=== PATIENT | male | born 1980 | race American Indian/Alaskan Native ===

== ENCOUNTER 2017-10-08 03:20 | Inpatient (IN) | payer SELFPAY ==
[2017-10-08] MEDS ORDERED: HALDOL IM ONE (03:40)
--- NOTE | 2017-10-08 03:45 | Emergency Department Report ---
<MARIS OLEA P - Last Filed: 10/08/17 06:50> ED Psych HPI - General Stated Complaint: 1013 Time Seen by Provider: 10/08/17 03:38 Source: patient, police Limitations: Altered Mental Status - History of Present Illness Initial Comments: Patient found throwing things from the [place]pass onto the highway by police. Reports patient also was walking onto the highway at one point. Patient altered not responding appropriately MD Complaint: altered mental status Associated Psychiatric Symptoms: other (psychosis) History of same: Yes Quality: getting worse Improves With: none Worsens With: none Context: not taking psychiatric (reports not taking haldol and wellbutrin) Associated Symptoms: denies other symptoms Treatments Prior to Arrival: placed on mental he - Related Data Allergies Allergy/AdvReac Type Severity Reaction Status Date / Time Unable to Assess Allergy Unverified 10/08/17 03:38 ED Review of Systems ROS: Stated complaint: 1013 Other details as noted in HPI Other: GENERAL: No weight change, fatigue, weakness, fever, chills, or night sweats SKIN: No changes in skin or hair, no itching, no rashes, no jaundice HEAD: No trauma, headache, or visual changes EYES: No blurriness, tearing, itching, acute visual loss, conjunctival discoloration, or scleral icterus EARS: No hearing loss, tinnitus, vertigo, or earache NOSE: No rhinorrhea, stuffiness, sneezing, itching, or epistaxis MOUTH: No bleeding gums, hoarseness, sore throat, or swelling CARDIAC: No new murmur, chest pain, palpitations, dyspnea on exertion, orthopnea , PND, or edema RESPIRATORY: No shortness of breath, wheeze, cough, sputum production, hemoptysis, pneumonia, asthma, bronchitis, or emphysema GI: No change in appetite, nausea, vomiting, dysphagia, change in bowel frequency, diarrhea, constipation, bleeding, hematemesis, melena, hematochezia, or abdominal pain URINARY: No frequency, urgency, polyuria, dysuria, hematuria, or incontinence MUSCULOSKELETAL: No muscle weakness, joint stiffness, decrease in range of motion, redness, swelling NEUROLOGIC: No loss of sensation, numbness, tingling, tremors, weakness, paralysis, seizures HEMATOLOGIC: No anemia, easy bruising, bleeding, petechiae, or purpura ENDOCRINE: No hot or cold intolerance, sweating, polyuria, polydipsia or, polyphagia no thyroid problems PSYCHIATRIC: Psychosis ED Physical Exam - Other Other exam information: GENERAL: Patient in no acute distress, patient disheveled HEAD: Normocephalic, atraumatic EYES: PERRLA, EOM intact, no scleral icterus, visual rodriguez and acuity wnl NOSE: No tenderness, discharge, sinus tenderness MOUTH: No erythema, bleeding, exudate HEART: Regular rate and rhythm, no murmur, S1-S2 are auscultated, pulses are symmetric LUNGS: bilateral breath sounds. No wheezing, rales, rhonchi ABDOMEN: Normal bowel sounds, no tenderness, no rebound, no guarding, no masses , no CVA tenderness MUSCULOSKELETAL: Normal joint range of motion, no redness, no swelling, no tenderness NEUROLOGIC: GCS 15, Alert and Oriented x3, Cranial nerves intact, normal sensation, normal strength, normal gait, no cerebellar deficit PSYCHIATRIC: patient with pressured speech, paranoia, aggression SKIN: Skin is warm and dry, no wounds, no rashes ED Course Vital Signs 10/08/17 04:01 Temperature 98.4 F Pulse Rate 102 H Respiratory 18 Rate Blood Pressure 124/86 O2 Sat by Pulse 100 Oximetry ED Medical Decision Making - Lab Data Result diagrams: 10/08/17 04:11 10/08/17 04:11 Laboratory Results - last 24 hr 10/08/17 10/08/17 10/08/17 04:11 04:11 04:11 WBC 16.9 H RBC 4.45 Hgb 14.2 Hct 41.8 MCV 94 MCH 32 MCHC 34 RDW 12.7 L Plt Count 301 Lymph % (Auto) 3.8 L [place] % (Auto) 7.1 Eos % (Auto) 0.1 Baso % (Auto) 0.2 Lymph # 0.6 L [place] # 1.2 H Eos # 0.0 Baso # 0.0 Seg Neutrophils % 88.8 H Seg Neutrophils # 15.0 H Sodium 143 Potassium 4.2 Chloride 101.6 Carbon Dioxide 29 Anion Gap 17 BUN 23 H Creatinine 1.3 Estimated GFR > 60 BUN/Creatinine Ratio 18 Glucose 91 Calcium 10.5 H Total Bilirubin 0.90 AST 34 ALT 24 Alkaline Phosphatase 102 Total Protein 7.7 Albumin 5.2 H Albumin/Globulin Ratio 2.1 Salicylates Acetaminophen < 5.0 L Plasma/Serum Alcohol 10/08/17 10/08/17 04:11 04:11 WBC RBC Hgb Hct MCV MCH MCHC RDW Plt Count Lymph % (Auto) [place] % (Auto) Eos % (Auto) Baso % (Auto) Lymph # [place] # Eos # Baso # Seg Neutrophils % Seg Neutrophils # Sodium Potassium Chloride Carbon Dioxide Anion Gap BUN Creatinine Estimated GFR BUN/Creatinine Ratio Glucose Calcium Total Bilirubin AST ALT Alkaline Phosphatase Total Protein Albumin Albumin/Globulin Ratio Salicylates < 0.3 L Acetaminophen Plasma/Serum Alcohol < 0.01 - Medical Decision Making At 0650 Dr. Sparrow agrees to follow up on CT head. If negative patient medically clear for transfer. Critical care attestation.: If time is entered above; I have spent that time in minutes in the direct care of this critically ill patient, excluding procedure time. ED Disposition Clinical Impression: Marijuana abuse, Amphetamine abuse, Cocaine abuse, Dehydration Psychosis Qualifiers: Psychosis type: unspecified psychosis type Qualified Code(s): F29 - Unspecified psychosis not due to a substance or known physiological condition Rhabdomyolysis Qualifiers: Rhabdomyolysis type: non-traumatic Qualified Code(s): M62.82 - Rhabdomyolysis Disposition: -09 OP ADMIT IP TO THIS HOSP Condition: Stable Referrals: PRIMARY CARE,MD [Primary Care Provider] - 3-5 Days <ALEXY SPARROW - Last Filed: 10/08/17 15:24> ED Course - Reevaluation(s) Reevaluation #1: 10/08/17 15:22 Patient care was discussed with the hospitalist salesperson men's hats Dr Zendejas. He will admit patient for further evaluation and management. ED Medical Decision Making - Lab Data Result diagrams: 10/08/17 14:26 10/08/17 14:26 Critical Care Time: Yes Critical care time in (mins) excluding proc time.: 45 ED Disposition Is pt being admited?: Yes Does the pt Need Aspirin: No Time of Disposition: 15:22
[2017-10-08 04:41] LABS: Basophils % (Auto) 0.2 % (0.0-1.8); Eosinophils % (Auto) 0.1 % (0.0-4.3); Hematocrit 41.8 % (35.5-45.6); Hemoglobin 14.2 gm/dl (11.8-15.2); Lymphocytes # (Auto) 0.6 K/mm3 (1.2-5.4); Lymphocytes % (Auto) 3.8 % (13.4-35.0); Mean Corpuscular HGB Conc 34 % (32-34); Mean Corpuscular Hemoglobin 32 pg (28-32); Mean Corpuscular Volume 94 fl (84-94); Monocytes # (Auto) 1.2 K/mm3 (0.0-0.8); Monocytes % (Auto) 7.1 % (0.0-7.3); Platelet Count 301 K/mm3 (140-440); Red Blood Count 4.45 M/mm3 (3.65-5.03); Red Cell Distribution Width 12.7 % (13.2-15.2)
[2017-10-08 05:08] LABS: Alanine Aminotransferase 24 units/L (7-56); Albumin 5.2 g/dL (3.9-5); BUN/Creatinine Ratio 18; Blood Urea Nitrogen 23 mg/dL (9-20); Calcium 10.5 mg/dL (8.4-10.2); Hemolysis Index 12
[2017-10-08] MEDS ORDERED: NACL 0.9% 1000 ML 1,000 ML IV ONE ×5 (07:57→16:32)
--- NOTE | 2017-10-08 10:19 | Cat Scan Report ---
FINAL REPORT EXAM: CT HEAD/BRAIN WO CON HISTORY: Alterted Mental Status COMPARISON: None. TECHNIQUE: Multiple contiguous axial images were obtained from the skullbase to the vertex without administration of IV contrast. Reformatted sagittal and coronal images were available for review. FINDINGS: There is normal angelo-white differentiation. There is no parenchymal hemorrhage or extra-axial fluid collection. There is no mass or mass effect. There is no acute territorial infarct. There is asymmetry to the lateral ventricles with the right lateral ventricle larger than the left. There is shift of the falx to the left of approximately 6 millimeters. The 3rd and 4th ventricles are normal. The posterior fossa is normal. The subarachnoid spaces and basilar cisterns are clear. There is no skull fracture. The paranasal sinuses and mastoid air cells are clear. The bilateral orbits are intact. IMPRESSION: No acute intracranial abnormality. Asymmetry to the lateral ventricles with the right ventricle larger than the left. Recommend comparison to any previous studies and correlation with clinical history. No obvious mass or obstructing lesion.
[2017-10-08 11:46] LABS: Benzodiazepines Screen,Urine PRESUMPTIVE NEGATIVE; Methadone Screen,Urine PRESUMPTIVE NEGATIVE; Opiate Screen,Urine PRESUMPTIVE NEGATIVE
--- NOTE | 2017-10-08 11:48 | XRay Report ---
FINAL REPORT EXAM: XR CHEST 1V AP HISTORY: Leukocytosis TECHNIQUE: One view examination of the chest PRIORS: None FINDINGS: There is no consolidated pneumonia, pleural effusion, or pneumothorax. Cardiac silhouette size is normal without vascular congestion. The regional skeleton is without acute pathology. Large lung volumes bilaterally suggest hyperinflation which may reflect pulmonary emphysema and/or asthma. IMPRESSION: Large lung volumes may be developmental variation. Differential includes pulmonary emphysema and/or asthma
[2017-10-08 11:53] LABS: Bilirubin,Urine NEG (Negative); Blood,Urine NEG (Negative); Color,Urine Amber (Yellow); Hyaline Casts,Urine 1 /LPF; Mucus,Urine 3+ /HPF
[2017-10-08 12:03] LABS: Amphetamine Screen,Urine PRESUMPTIVE POSITIVE; Cannabinoid Screen,Urine PRESUMPTIVE POSITIVE; Cocaine Screen,Urine PRESUMPTIVE POSITIVE
--- NOTE | 2017-10-08 13:34 | Consultation ---
History of Present Illness - Reason for Consult Consult date: 10/08/17 Reason for consult: Initial Psychiatric Evaluation - Chief Complaint Chief complaint: " I don't remember too much." - History of Present Psychiatric Illness Patient is a 37-year-old -[place] male that was brought to the emergency room for throwing things from the overpass onto the highway by police. Reports patient also was walking onto the highway at one point. Patient has a past psychiatric history of Schizoaffective Disorder and Post traumatic stress disorder. Patient is known to provider. Today patient presents labile and agitated during the assessment. He states, " It is a situation I can't talk about with you." Paranoid and grandiose delusions are evident. Patient denies suicidal/homicidal ideations and auditory/visual hallucinations. Current psychiatric medications: Patient denies. None reported. Past Psychiatric History: schizoaffective disorder (2018), PTSD (2018); approximately 5 previous inpatient psychiatric hospitalizations-patient states I can't remember the dates and they were in different states; no outpatient psychiatrist; no previous suicide attempts. Past Psychiatric Medication Trials: Vistaril, Remeron, BuSpar, Trileptal History of trauma/abuse: Patient denies sexual, physical, and mental abuse. Drugs/alcohol abuse history: Patient denies any history of substance abuse. Social history: High school diploma; homeless; no pending legal issues; 3 children(ages 11, 4, 1); single. gle. Family history: Patient denies family history of psychiatric or substance abuse. Medications and Allergies Allergies Allergy/AdvReac Type Severity Reaction Status Date / Time Unable to Assess Allergy Unverified 10/08/17 03:38 Mental Status Exam - Vital signs Last Vital Signs Temp 98.4 F 10/08/17 04:01 Pulse 102 H 10/08/17 04:01 Resp 18 10/08/17 04:01 BP 124/86 10/08/17 04:01 Pulse Ox 100 10/08/17 04:01 - Exam Narrative exam: Mental Status Exam General Appearance: Causally Dressed-hospital gown Eye Contact: Intermittent Orientation: Alert and oriented x 4 ( person, place, time, and date) Attitude/Behavior: Defensive and somewhat uncooperative. Sensorium: Distracted Psychomotor & Musculoskeletal Activity: Laying in bed Mood: Anxious, labile, irritable Affect: Congruent with mood Speech/Language: Regular rate and tone Thought Processes: Circumstantial, flight of ideas Thought Content: + paranoia, grandiose delusions Perception: Patient denies A/V/T hallucinations. Concentration/Attention: Impaired Suicidal Ideations/Plan: Patient denies. Homicidal Ideations/Plan: Patient denies. Insight: Poor Judgment: Poor Results Result Diagrams: 10/08/17 14:26 10/08/17 14:26 Abnormal lab results 10/08/17 10/08/17 10/08/17 Range/Units 04:11 04:11 04:11 WBC 16.9 H (4.5-11.0) K/mm3 RDW 12.7 L (13.2-15.2) % Lymph % (Auto) 3.8 L (13.4-35.0) % Lymph # 0.6 L (1.2-5.4) K/mm3 [place] # 1.2 H (0.0-0.8) K/mm3 Seg Neutrophils % 88.8 H (40.0-70.0) % Seg Neutrophils # 15.0 H (1.8-7.7) K/mm3 BUN 23 H (9-20) mg/dL Calcium 10.5 H (8.4-10.2) mg/dL Total Creatine Kinase (55-170) units/L Albumin 5.2 H (3.9-5) g/dL Ur Specific [place] (1.003-1.030) Urine WBC (Auto) (0.0-6.0) /HPF Salicylates (2.8-20.0) mg/dL Acetaminophen < 5.0 L (10.0-30.0) ug/mL 10/08/17 10/08/17 10/08/17 Range/Units 04:11 08:21 11:25 WBC (4.5-11.0) K/mm3 RDW (13.2-15.2) % Lymph % (Auto) (13.4-35.0) % Lymph # (1.2-5.4) K/mm3 [place] # (0.0-0.8) K/mm3 Seg Neutrophils % (40.0-70.0) % Seg Neutrophils # (1.8-7.7) K/mm3 BUN (9-20) mg/dL Calcium (8.4-10.2) mg/dL Total Creatine Kinase 1095 H (55-170) units/L Albumin (3.9-5) g/dL Ur Specific [place] 1.034 H (1.003-1.030) Urine WBC (Auto) 9.0 H (0.0-6.0) /HPF Salicylates < 0.3 L (2.8-20.0) mg/dL Acetaminophen (10.0-30.0) ug/mL All other labs normal. Assessment and Plan Assessment and plan: Assessment and plan: Impression: PPHx of Schizaffective Disorder and PTSD. Pyschosis unspecified. Today the patient presents labile and agitated during the assessment. Psychosis is apparent (Paranoid thoughts/grandiose delusions). Patient denies auditory/visual hallucinations and suicidal/homicidal ideations. DDx: r/o Bipolar Disorder with psychotic features Recommendation/Plan: 1. Continue 1013 and reassess in 24 hours. 2. Assist with placement to inpatient psychiatric services. 3. Gain collateral to determine proper disposition. 4. Start Zyprexa 5mg po psychosis/mood. Patient educated on metabolic side effects. Patient verbalizes full understanding. 5. Will monitor mood, psychosis, sleep, appetite, compliance, and side effects.
[2017-10-08 14:52] LABS: Basophils % (Auto) 0.3 % (0.0-1.8); Eosinophils # (Auto) 0.1 K/mm3 (0.0-0.4); Eosinophils % (Auto) 1.1 % (0.0-4.3); Hematocrit 38.9 % (35.5-45.6); Lymphocytes # (Auto) 1.3 K/mm3 (1.2-5.4); Lymphocytes % (Auto) 13.6 % (13.4-35.0); Mean Corpuscular HGB Conc 34 % (32-34); Mean Corpuscular Hemoglobin 32 pg (28-32); Mean Corpuscular Volume 95 fl (84-94); Monocytes % (Auto) 10.9 % (0.0-7.3); Platelet Count 257 K/mm3 (140-440); Red Blood Count 4.11 M/mm3 (3.65-5.03); Red Cell Distribution Width 12.8 % (13.2-15.2)
[2017-10-08 15:00] LABS: Alanine Aminotransferase 24 units/L (7-56); Albumin 3.8 g/dL (3.9-5); BUN/Creatinine Ratio 22; Blood Urea Nitrogen 20 mg/dL (9-20); Calcium 8.3 mg/dL (8.4-10.2); Hemolysis Index 0
--- NOTE | 2017-10-08 18:26 | History and Physical Report ---
History of Present Illness Chief complaint: I dont remember too much. History of present illness: 37 YO Male with PTSD, Schizoaffective Disorder, PTSD, Polysubstance Abuse presents to ED for evaluation. Pt is agitated and unable to provide detailed history. Pt was brought to ED after being found by [employer] after being found throwing objects [place] onto [place] and walking in traffic. Pt seen and evaluated in ED and found to have Rhabdomyolysis. No further history provided or available. Mental health consulted in ED. Pt admitted to medical floor. Past History Past Medical History: other (PTSD, Schizoaffective Disorder, PTSD, Substance Abuse) Past Surgical History: No surgical history Social history: no significant social history Family history: no significant family history Medications and Allergies Allergies Allergy/AdvReac Type Severity Reaction Status Date / Time Unable to Assess Allergy Unverified 10/08/17 03:38 Review of Systems ROS unobtainable: due to mental status Exam - Constitutional Vitals: Temp Pulse Resp BP Pulse Ox 97.7 F 92 H 16 121/73 98 10/08/17 08:05 10/08/17 08:05 10/08/17 08:05 10/08/17 08:05 10/08/17 08:05 General appearance: Present: mild distress - EENT Eyes: Present: PERRL ENT: hearing intact, clear oral mucosa - Neck Neck: Present: supple, normal ROM - Respiratory Respiratory effort: labored Respiratory: bilateral: CTA - Cardiovascular Heart Sounds: Present: S1 & S2. Absent: rub, click - Extremities Extremities: pulses symmetrical, No edema Peripheral Pulses: within normal limits - Abdominal General gastrointestinal: Present: soft, non-tender, non-distended, normal bowel sounds Male genitourinary: Present: normal - Integumentary Integumentary: Present: clear, dry, clammy, decreased turgor - Musculoskeletal Musculoskeletal: generalized weakness - Psychiatric Psychiatric: no intact judgment & insight, no memory intact, agitated - Neurologic Neurologic: focal deficits, no gait normal Results - Labs CBC & Chem 7: 10/08/17 14:26 10/08/17 14:26 Labs: Abnormal lab results 10/08/17 10/08/17 10/08/17 Range/Units 04:11 04:11 04:11 WBC 16.9 H (4.5-11.0) K/mm3 MCV (84-94) fl RDW 12.7 L (13.2-15.2) % Lymph % (Auto) 3.8 L (13.4-35.0) % [place] % (Auto) (0.0-7.3) % Lymph # 0.6 L (1.2-5.4) K/mm3 [place] # 1.2 H (0.0-0.8) K/mm3 Seg Neutrophils % 88.8 H (40.0-70.0) % Seg Neutrophils # 15.0 H (1.8-7.7) K/mm3 BUN 23 H (9-20) mg/dL Glucose (75-100) mg/dL Calcium 10.5 H (8.4-10.2) mg/dL AST (5-40) units/L Total Creatine Kinase (55-170) units/L Total Protein (6.3-8.2) g/dL Albumin 5.2 H (3.9-5) g/dL Ur Specific [place] (1.003-1.030) Urine WBC (Auto) (0.0-6.0) /HPF Salicylates (2.8-20.0) mg/dL Acetaminophen < 5.0 L (10.0-30.0) ug/mL 10/08/17 10/08/17 10/08/17 Range/Units 04:11 08:21 11:25 WBC (4.5-11.0) K/mm3 MCV (84-94) fl RDW (13.2-15.2) % Lymph % (Auto) (13.4-35.0) % [place] % (Auto) (0.0-7.3) % Lymph # (1.2-5.4) K/mm3 [place] # (0.0-0.8) K/mm3 Seg Neutrophils % (40.0-70.0) % Seg Neutrophils # (1.8-7.7) K/mm3 BUN (9-20) mg/dL Glucose (75-100) mg/dL Calcium (8.4-10.2) mg/dL AST (5-40) units/L Total Creatine Kinase 1095 H (55-170) units/L Total Protein (6.3-8.2) g/dL Albumin (3.9-5) g/dL Ur Specific [place] 1.034 H (1.003-1.030) Urine WBC (Auto) 9.0 H (0.0-6.0) /HPF Salicylates < 0.3 L (2.8-20.0) mg/dL Acetaminophen (10.0-30.0) ug/mL 10/08/17 10/08/17 Range/Units 14:26 14:26 WBC (4.5-11.0) K/mm3 MCV 95 H (84-94) fl RDW 12.8 L (13.2-15.2) % Lymph % (Auto) (13.4-35.0) % [place] % (Auto) 10.9 H (0.0-7.3) % Lymph # (1.2-5.4) K/mm3 [place] # 1.0 H (0.0-0.8) K/mm3 Seg Neutrophils % 74.1 H (40.0-70.0) % Seg Neutrophils # (1.8-7.7) K/mm3 BUN (9-20) mg/dL Glucose 113 H (75-100) mg/dL Calcium 8.3 L D (8.4-10.2) mg/dL AST 59 H (5-40) units/L Total Creatine Kinase 2535 H (55-170) units/L Total Protein 6.2 L (6.3-8.2) g/dL Albumin 3.8 L (3.9-5) g/dL Ur Specific [place] (1.003-1.030) Urine WBC (Auto) (0.0-6.0) /HPF Salicylates (2.8-20.0) mg/dL Acetaminophen (10.0-30.0) ug/mL Assessment and Plan - Patient Problems (1) Rhabdomyolysis Current Visit: Yes Status: Acute Qualifiers: Rhabdomyolysis type: non-traumatic Qualified Code(s): M62.82 - Rhabdomyolysis Plan to address problem: IVF resuscitation therapy, IV bicarbonate overnight, repeat CK level, monitor uop q shift, (2) Bipolar 1 disorder Current Visit: Yes Status: Acute Plan to address problem: Mental Health consulted, supportive care. (3) Amphetamine abuse Current Visit: Yes Status: Acute Plan to address problem: supportive care. (4) Cocaine abuse Current Visit: Yes Status: Acute Plan to address problem: supportive care. (5) DVT prophylaxis Current Visit: Yes Status: Acute Plan to address problem: SCD to BLE while in bed
[2017-10-08] MEDS ORDERED: SODIUM CHLORIDE FLUSH SYRINGE 10 ML IV PRN (18:28)
[2017-10-08] MEDS ORDERED: ZOFRAN IV PRN (18:28)
[2017-10-08] MEDS ORDERED: PROVENTIL IH PRN (18:28)
[2017-10-08] MEDS ORDERED: SODIUM BICARBONATE 150 MEQ in D5W 1,000 ML IV ONE (19:00)
[2017-10-08] MEDS ORDERED: NACL 0.45% 1000 ML 1,000 ML IV SCH (19:00)
[2017-10-08] MEDS ORDERED: NACL 0.9% 1000 ML 1,000 ML ONE (22:45)
[2017-10-08] MEDS: SODIUM CHLORIDE FLUSH SYRINGE 10 ML IV SCH (23:01)
[2017-10-09] MEDS: TYLENOL PO PRN ×3 (01:27→22:35)
--- NOTE | 2017-10-09 08:59 | Progress Note ---
Assessment and Plan Assessment and plan: Acute Rehabdomyolysis. Creatine kinase is improving. its 2215 now from 2535 on admission Polysubstance abuse osiel m,ethamphetamine,cocaine Schizoaffective disorder. Psych consulted PTSD Full code status. 1013 status. Psych to see History Interval history: Brought in for altered mental status,alleged to be walking into traffic, throwing things over overpass Hospitalist Physical - Physical exam Narrative exam: Gen:Not in acute distress, lying in bed HEENT:Normocephalic atraumatic Neck: Supple, no JVD Lungs:clear to auscultation bilaterally, no rhonchi, no wheeze Heart:S1 and S2 reg, no murmurs, rubs or gallop Abd: Soft, non tender, non distended, normal bowel sounds Ext: No edema, clubbing or cyanosis Neuro:Awake,alert, moves all ext - Constitutional Vitals: Temp Pulse Resp BP Pulse Ox 98.0 F 62 18 115/74 98 10/09/17 00:56 10/09/17 00:56 10/09/17 02:27 10/09/17 00:56 10/09/17 00:56 Results - Labs CBC & Chem 7: 10/08/17 14:26 10/08/17 14:26 Labs: Laboratory Last Values WBC 9.6 K/mm3 (4.5-11.0) 10/08/17 14:26 RBC 4.11 M/mm3 (3.65-5.03) 10/08/17 14:26 Hgb 13.0 gm/dl (11.8-15.2) 10/08/17 14:26 Hct 38.9 % (35.5-45.6) 10/08/17 14:26 MCV 95 fl (84-94) H 10/08/17 14:26 MCH 32 pg (28-32) 10/08/17 14:26 MCHC 34 % (32-34) 10/08/17 14:26 RDW 12.8 % (13.2-15.2) L 10/08/17 14:26 Plt Count 257 K/mm3 (140-440) 10/08/17 14:26 Lymph % (Auto) 13.6 % (13.4-35.0) 10/08/17 14:26 [place] % (Auto) 10.9 % (0.0-7.3) H 10/08/17 14:26 Eos % (Auto) 1.1 % (0.0-4.3) 10/08/17 14:26 Baso % (Auto) 0.3 % (0.0-1.8) 10/08/17 14:26 Lymph # 1.3 K/mm3 (1.2-5.4) 10/08/17 14:26 [place] # 1.0 K/mm3 (0.0-0.8) H 10/08/17 14:26 Eos # 0.1 K/mm3 (0.0-0.4) 10/08/17 14:26 Baso # 0.0 K/mm3 (0.0-0.1) 10/08/17 14:26 Seg Neutrophils % 74.1 % (40.0-70.0) H 10/08/17 14:26 Seg Neutrophils # 7.1 K/mm3 (1.8-7.7) 10/08/17 14:26 Sodium 142 mmol/L (137-145) 10/08/17 14:26 Potassium 4.0 mmol/L (3.6-5.0) 10/08/17 14:26 Chloride 104.3 mmol/L (98-107) 10/08/17 14:26 Carbon Dioxide 28 mmol/L (22-30) 10/08/17 14:26 Anion Gap 14 mmol/L 10/08/17 14:26 BUN 20 mg/dL (9-20) 10/08/17 14:26 Creatinine 0.9 mg/dL (0.8-1.5) 10/08/17 14:26 Estimated GFR > 60 ml/min 10/08/17 14:26 BUN/Creatinine Ratio 22 % 10/08/17 14:26 Glucose 113 mg/dL (75-100) H 10/08/17 14:26 Calcium 8.3 mg/dL (8.4-10.2) L D 10/08/17 14:26 Total Bilirubin 0.50 mg/dL (0.1-1.2) 10/08/17 14:26 AST 59 units/L (5-40) H 10/08/17 14:26 ALT 24 units/L (7-56) 10/08/17 14:26 Alkaline Phosphatase 83 units/L (35-129) 10/08/17 14:26 Total Creatine Kinase 2215 units/L (55-170) H 10/09/17 07:31 Total Protein 6.2 g/dL (6.3-8.2) L 10/08/17 14:26 Albumin 3.8 g/dL (3.9-5) L 10/08/17 14:26 Albumin/Globulin Ratio 1.6 % 10/08/17 14:26 Urine Color [place] (Yellow) 10/08/17 11:25 Urine Turbidity Clear (Clear) 10/08/17 11:25 Urine pH 5.0 (5.0-7.0) 10/08/17 11:25 Ur Specific [place] 1.034 (1.003-1.030) H 10/08/17 11:25 Urine Protein 100 mg/dl mg/dL (Negative) 10/08/17 11:25 Urine Glucose (UA) Neg mg/dL (Negative) 10/08/17 11:25 Urine Ketones 20 mg/dL (Negative) 10/08/17 11:25 Urine Blood Neg (Negative) 10/08/17 11:25 Urine Nitrite Neg (Negative) 10/08/17 11:25 Urine Bilirubin Neg (Negative) 10/08/17 11:25 Urine Urobilinogen 4.0 mg/dL (<2.0) 10/08/17 11:25 Ur Leukocyte Esterase Neg (Negative) 10/08/17 11:25 Urine WBC (Auto) 9.0 /HPF (0.0-6.0) H 10/08/17 11:25 Urine RBC (Auto) 4.0 /HPF (0.0-6.0) 10/08/17 11:25 U Epithel Cells (Auto) < 1.0 /HPF (0-13.0) 10/08/17 11:25 Hyaline Casts 1 /LPF 10/08/17 11:25 Urine Mucus 3+ /HPF 10/08/17 11:25 Salicylates < 0.3 mg/dL (2.8-20.0) L 10/08/17 04:11 Urine Opiates Screen Presumptive negative 10/08/17 11:25 Urine Methadone Screen Presumptive negative 10/08/17 11:25 Acetaminophen < 5.0 ug/mL (10.0-30.0) L 10/08/17 04:11 Ur Barbiturates Screen Presumptive negative 10/08/17 11:25 Ur Phencyclidine Scrn Presumptive negative 10/08/17 11:25 Ur Amphetamines Screen Presumptive positive 10/08/17 11:25 U Benzodiazepines Scrn Presumptive negative 10/08/17 11:25 Urine Cocaine Screen Presumptive positive 10/08/17 11:25 U Marijuana (THC) Screen Presumptive positive 10/08/17 11:25 Drugs of Abuse Note Disclamer 10/08/17 11:25 Plasma/Serum Alcohol < 0.01 % (0-0.07) 10/08/17 04:11
[2017-10-09] MEDS: D5/0.45NS 1,000 ML IV SCH (09:28)
[2017-10-09] MEDS ORDERED: VASELINE LIP THERAPY TP PRN (12:50)
[2017-10-09] MEDS: SODIUM CHLORIDE FLUSH SYRINGE 10 ML IV SCH ×2 (14:30→22:25)
[2017-10-10] MEDS: D5/0.45NS 1,000 ML IV SCH ×3 (02:06→19:39)
[2017-10-10 07:05] LABS: BUN/Creatinine Ratio 9; Blood Urea Nitrogen 6 mg/dL (9-20); Calcium 7.8 mg/dL (8.4-10.2); Hemolysis Index 1
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
[2017-10-10] MEDS: LEVAQUIN 500MG/100ML 500 MG/100 ML BAG IV SCH (09:59)
[2017-10-10] MEDS ORDERED: MOTRIN PO PRN (09:59)
[2017-10-10] MEDS: SODIUM CHLORIDE FLUSH SYRINGE 10 ML IV SCH ×2 (09:59→22:12)
--- NOTE | 2017-10-10 14:11 | XRay Report ---
BILATERAL RIBS: History: Pain. Routine views of the rib cage demonstrate normal mineralization with no significant contour abnormalities, fractures or destructive lesions. PA view of the chest demonstrates no underlying cardiopulmonary abnormalities, fluid or pneumothorax. IMPRESSION: Normal bilateral ribs.
[2017-10-10] MEDS ORDERED: K-DUR PO ONE (20:00)
[2017-10-11] MEDS: D5/0.45NS 1,000 ML IV SCH ×4 (03:34→23:14)
[2017-10-11 06:40] LABS: BUN/Creatinine Ratio 7; Blood Urea Nitrogen 5 mg/dL (9-20); Calcium 8.1 mg/dL (8.4-10.2); Hemolysis Index 2
[2017-10-11] MEDS: SODIUM CHLORIDE FLUSH SYRINGE 10 ML IV SCH ×2 (09:54→22:03)
[2017-10-11] MEDS: LEVAQUIN 500MG/100ML 500 MG/100 ML BAG IV SCH (09:54)
--- NOTE | 2017-10-11 12:14 | Progress Note ---
Assessment and Plan Assessment and plan: --Acute Rehabdomyolysis: Probably secondary to polysubstance abuse Mainly cocaine, CK trending down today 685, continue IV fluids Preserved renal function, input output monitoring --Polysubstance abuse with methamphetamine,cocaine,marijuana Counseling done, patient needs drug rehabilitation --Schizoaffective disorder: Psych following Recommend inpatient psych transfer once medically stable Patient is medically stable for discharge --History of PTSD; management per psych --Pain both low rib cages.; Rib series is negative for fractures --1013 status, Psych following Patient medically stable for discharge Disposition per psych Plan of care reviewed with the patient his nurse and case management History Interval history: Patient seen and examined medical records reviewed No new events reported by the nursing staff Patient's CK levels trending down Medically stable for discharge and transfer to inpatient psych facility Patient has no new complaints Vital signs reviewed Hospitalist Physical - Constitutional Vitals: Temp Pulse Resp BP Pulse Ox 98.8 F 55 L 16 111/56 97 10/11/17 06:00 10/11/17 06:00 10/11/17 06:00 10/11/17 06:00 10/11/17 06:00 General appearance: Present: no acute distress, well-nourished - EENT Eyes: Present: PERRL, EOM intact - Neck Neck: Present: supple, normal ROM - Respiratory Respiratory effort: normal Respiratory: bilateral: diminished, rales, negative: rhonchi, wheezing - Cardiovascular Rhythm: regular Heart Sounds: Present: S1 & S2 - Extremities Extremities: no ischemia, No edema - Abdominal General gastrointestinal: soft, non-tender, non-distended, normal bowel sounds - Integumentary Integumentary: Present: clear, warm - Psychiatric Psychiatric: appropriate mood/affect, cooperative - Neurologic Neurologic: CNII-XII intact, moves all extremities Results - Labs CBC & Chem 7: 10/08/17 14:26 10/11/17 05:34 Labs: Laboratory Last Values WBC 9.6 K/mm3 (4.5-11.0) 10/08/17 14:26 RBC 4.11 M/mm3 (3.65-5.03) 10/08/17 14:26 Hgb 13.0 gm/dl (11.8-15.2) 10/08/17 14:26 Hct 38.9 % (35.5-45.6) 10/08/17 14:26 MCV 95 fl (84-94) H 10/08/17 14:26 MCH 32 pg (28-32) 10/08/17 14:26 MCHC 34 % (32-34) 10/08/17 14:26 RDW 12.8 % (13.2-15.2) L 10/08/17 14:26 Plt Count 257 K/mm3 (140-440) 10/08/17 14:26 Lymph % (Auto) 13.6 % (13.4-35.0) 10/08/17 14:26 [place] % (Auto) 10.9 % (0.0-7.3) H 10/08/17 14:26 Eos % (Auto) 1.1 % (0.0-4.3) 10/08/17 14:26 Baso % (Auto) 0.3 % (0.0-1.8) 10/08/17 14: Lymph # 1.3 K/mm3 (1.2-5.4) 10/08/17 14:26 [place] # 1.0 K/mm3 (0.0-0.8) H 10/08/17 14:26 Eos # 0.1 K/mm3 (0.0-0.4) 10/08/17 14:26 Baso # 0.0 K/mm3 (0.0-0.1) 10/08/17 14:26 Seg Neutrophils % 74.1 % (40.0-70.0) H 10/08/17 14:26 Seg Neutrophils # 7.1 K/mm3 (1.8-7.7) 10/08/17 14:26 Sodium 142 mmol/L (137-145) 10/11/17 05:34 Potassium 4.1 mmol/L (3.6-5.0) 10/11/17 05:34 Chloride 104.9 mmol/L (98-107) 10/11/17 05:34 Carbon Dioxide 27 mmol/L (22-30) 10/11/17 05:34 Anion Gap 14 mmol/L 10/11/17 05:34 BUN 5 mg/dL (9-20) L 10/11/17 05:34 Creatinine 0.7 mg/dL (0.8-1.5) L 10/11/17 05:34 Estimated GFR > 60 ml/min 10/11/17 05:34 BUN/Creatinine Ratio 7 % 10/11/17 05:34 Glucose 96 mg/dL (75-100) 10/11/17 05:34 Calcium 8.1 mg/dL (8.4-10.2) L 10/11/17 05:34 Total Bilirubin 0.50 mg/dL (0.1-1.2) 10/08/17 14:26 AST 59 units/L (5-40) H 10/08/17 14:26 ALT 24 units/L (7-56) 10/08/17 14:26 Alkaline Phosphatase 83 units/L (35-129) 10/08/17 14:26 Total Creatine Kinase 685 units/L (55-170) H 10/11/17 05:34 Total Protein 6.2 g/dL (6.3-8.2) L 10/08/17 14:26 Albumin 3.8 g/dL (3.9-5) L 10/08/17 14:26 Albumin/Globulin Ratio 1.6 % 10/08/17 14:26 Urine Color [place] (Yellow) 10/08/17 11:25 Urine Turbidity Clear (Clear) 10/08/17 11:25 Urine pH 5.0 (5.0-7.0) 10/08/17 11:25 Ur Specific [place] 1.034 (1.003-1.030) H 10/08/17 11:25 Urine Protein 100 mg/dl mg/dL (Negative) 10/08/17 11:25 Urine Glucose (UA) Neg mg/dL (Negative) 10/08/17 11:25 Urine Ketones 20 mg/dL (Negative) 10/08/17 11:25 Urine Blood Neg (Negative) 10/08/17 11:25 Urine Nitrite Neg (Negative) 10/08/17 11:25 Urine Bilirubin Neg (Negative) 10/08/17 11:25 Urine Urobilinogen 4.0 mg/dL (<2.0) 10/08/17 11:25 Ur Leukocyte Esterase Neg (Negative) 10/08/17 11:25 Urine WBC (Auto) 9.0 /HPF (0.0-6.0) H 10/08/17 11:25 Urine RBC (Auto) 4.0 /HPF (0.0-6.0) 10/08/17 11:25 U Epithel Cells (Auto) < 1.0 /HPF (0-13.0) 10/08/17 11:25 Hyaline Casts 1 /LPF 10/08/17 11:25 Urine Mucus 3+ /HPF 10/08/17 11:25 Salicylates < 0.3 mg/dL (2.8-20.0) L 10/08/17 04:11 Urine Opiates Screen Presumptive negative 10/08/17 11:25 Urine Methadone Screen Presumptive negative 10/08/17 11:25 Acetaminophen < 5.0 ug/mL (10.0-30.0) L 10/08/17 04:11 Ur Barbiturates Screen Presumptive negative 10/08/17 11:25 Ur Phencyclidine Scrn Presumptive negative 10/08/17 11:25 Ur Amphetamines Screen Presumptive positive 10/08/17 11:25 U Benzodiazepines Scrn Presumptive negative 10/08/17 11:25 Urine Cocaine Screen Presumptive positive 10/08/17 11:25 U Marijuana (THC) Screen Presumptive positive 10/08/17 11:25 Drugs of Abuse Note Disclamer 10/08/17 11:25 Plasma/Serum Alcohol < 0.01 % (0-0.07) 10/08/17 04:11
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
[2017-10-11] MEDS: REMERON PO SCH (22:01)
[2017-10-12] MEDS: D5/0.45NS 1,000 ML IV SCH (10:28)
[2017-10-12] MEDS: SODIUM CHLORIDE FLUSH SYRINGE 10 ML IV SCH ×2 (10:30→22:10)
[2017-10-12] MEDS: LEVAQUIN PO SCH (10:30)
--- NOTE | 2017-10-12 21:10 | Progress Note ---
Assessment and Plan Assessment and plan: --Acute Rehabdomyolysis: Probably secondary to polysubstance abuse Mainly cocaine, CK trending down today 420, continue IV fluids Preserved renal function, input output monitoring --Polysubstance abuse with methamphetamine,cocaine,marijuana Counseling done, patient needs drug rehabilitation --Schizoaffective disorder: Psych following Recommend inpatient psych transfer once medically stable Patient is medically stable for discharge --History of PTSD; management per psych --Pain both low rib cages.; Rib series is negative for fractures --1013 status, Psych following Patient medically stable for discharge Disposition per psych History Interval history: Patient seen and examined medical records reviewed No new events Comfortable, no complaints Vital signs stable Hospitalist Physical - Constitutional Vitals: Temp Pulse Resp BP Pulse Ox 97.9 F 63 20 148/82 98 10/12/17 05:24 10/12/17 17:35 10/12/17 17:35 10/12/17 17:35 10/12/17 17:35 General appearance: Present: no acute distress, well-nourished - EENT Eyes: Present: PERRL, EOM intact - Neck Neck: Present: supple, normal ROM - Respiratory Respiratory effort: normal Respiratory: negative: rales, rhonchi, wheezing - Cardiovascular Rhythm: regular Heart Sounds: Present: S1 & S2 - Extremities Extremities: no ischemia, No edema - Abdominal General gastrointestinal: soft, non-tender, non-distended, normal bowel sounds - Integumentary Integumentary: Present: clear, warm - Psychiatric Psychiatric: appropriate mood/affect, cooperative - Neurologic Neurologic: CNII-XII intact, moves all extremities Results - Labs CBC & Chem 7: 10/08/17 14:26 10/11/17 05:34 Labs: Laboratory Last Values WBC 9.6 K/mm3 (4.5-11.0) 10/08/17 14:26 RBC 4.11 M/mm3 (3.65-5.03) 10/08/17 14:26 Hgb 13.0 gm/dl (11.8-15.2) 10/08/17 14:26 Hct 38.9 % (35.5-45.6) 10/08/17 14:26 MCV 95 fl (84-94) H 10/08/17 14:26 MCH 32 pg (28-32) 10/08/17 14:26 MCHC 34 % (32-34) 10/08/17 14:26 RDW 12.8 % (13.2-15.2) L 10/08/17 14:26 Plt Count 257 K/mm3 (140-440) 10/08/17 14:26 Lymph % (Auto) 13.6 % (13.4-35.0) 10/08/17 14:26 [place] % (Auto) 10.9 % (0.0-7.3) H 10/08/17 14:26 Eos % (Auto) 1.1 % (0.0-4.3) 10/08/17 14:26 Baso % (Auto) 0.3 % (0.0-1.8) 10/08/17 14:26 Lymph # 1.3 K/mm3 (1.2-5.4) 10/08/17 14:26 [place] # 1.0 K/mm3 (0.0-0.8) H 10/08/17 14:26 Eos # 0.1 K/mm3 (0.0-0.4) 10/08/17 14:26 Baso # 0.0 K/mm3 (0.0-0.1) 10/08/17 14:26 Seg Neutrophils % 74.1 % (40.0-70.0) H 10/08/17 14:26 Seg Neutrophils # 7.1 K/mm3 (1.8-7.7) 10/08/17 14:26 Sodium 142 mmol/L (137-145) 10/11/17 05:34 Potassium 4.1 mmol/L (3.6-5.0) 10/11/17 05:34 Chloride 104.9 mmol/L (98-107) 10/11/17 05:34 Carbon Dioxide 27 mmol/L (22-30) 10/11/17 05:34 Anion Gap 14 mmol/L 10/11/17 05:34 BUN 5 mg/dL (9-20) L 10/11/17 05:34 Creatinine 0.7 mg/dL (0.8-1.5) L 10/11/17 05:34 Estimated GFR > 60 ml/min 10/11/17 05:34 BUN/Creatinine Ratio 7 % 10/11/17 05:34 Glucose 96 mg/dL (75-100) 10/11/17 05:34 Calcium 8.1 mg/dL (8.4-10.2) L 10/11/17 05:34 Total Bilirubin 0.50 mg/dL (0.1-1.2) 10/08/17 14:26 AST 59 units/L (5-40) H 10/08/17 14:26 ALT 24 units/L (7-56) 10/08/17 14:26 Alkaline Phosphatase 83 units/L (35-129) 10/08/17 14:26 Total Creatine Kinase 420 units/L (55-170) H 10/12/17 06:40 Total Protein 6.2 g/dL (6.3-8.2) L 10/08/17 14:26 Albumin 3.8 g/dL (3.9-5) L 10/08/17 14:26 Albumin/Globulin Ratio 1.6 % 10/08/17 14:26 Urine Color [place] (Yellow) 10/08/17 11:25 Urine Turbidity Clear (Clear) 10/08/17 11:25 Urine pH 5.0 (5.0-7.0) 10/08/17 11:25 Ur Specific [place] 1.034 (1.003-1.030) H 10/08/17 11:25 Urine Protein 100 mg/dl mg/dL (Negative) 10/08/17 11:25 Urine Glucose (UA) Neg mg/dL (Negative) 10/08/17 11:25 Urine Ketones 20 mg/dL (Negative) 10/08/17 11:25 Urine Blood Neg (Negative) 10/08/17 11:25 Urine Nitrite Neg (Negative) 10/08/17 11:25 Urine Bilirubin Neg (Negative) 10/08/17 11:25 Urine Urobilinogen 4.0 mg/dL (<2.0) 10/08/17 11:25 Ur Leukocyte Esterase Neg (Negative) 10/08/17 11:25 Urine WBC (Auto) 9.0 /HPF (0.0-6.0) H 10/08/17 11:25 Urine RBC (Auto) 4.0 /HPF (0.0-6.0) 10/08/17 11:25 U Epithel Cells (Auto) < 1.0 /HPF (0-13.0) 10/08/17 11:25 Hyaline Casts 1 /LPF 10/08/17 11:25 Urine Mucus 3+ /HPF 10/08/17 11:25 Salicylates < 0.3 mg/dL (2.8-20.0) L 10/08/17 04:11 Urine Opiates Screen Presumptive negative 10/08/17 11:25 Urine Methadone Screen Presumptive negative 10/08/17 11:25 Acetaminophen < 5.0 ug/mL (10.0-30.0) L 10/08/17 04:11 Ur Barbiturates Screen Presumptive negative 10/08/17 11:25 Ur Phencyclidine Scrn Presumptive negative 10/08/17 11:25 Ur Amphetamines Screen Presumptive positive 10/08/17 11:25 U Benzodiazepines Scrn Presumptive negative 10/08/17 11:25 Urine Cocaine Screen Presumptive positive 10/08/17 11:25 U Marijuana (THC) Screen Presumptive positive 10/08/17 11:25 Drugs of Abuse Note Disclamer 10/08/17 11:25 Plasma/Serum Alcohol < 0.01 % (0-0.07) 10/08/17 04:11
[2017-10-12] MEDS: REMERON PO SCH (22:11)
[2017-10-13] MEDS: D5/0.45NS 1,000 ML IV SCH ×2 (00:28→06:45)
[2017-10-13] MEDS: SODIUM CHLORIDE FLUSH SYRINGE 10 ML IV SCH (09:58)
[2017-10-13] MEDS: LEVAQUIN PO SCH (09:59)
--- NOTE | 2017-10-13 11:00 | Progress Note ---
Subjective - Reason for Consult Consult date: 10/13/17 Reason for consult: Psychiatry Follow-up - Chief Complaint Chief complaint: "I feel much better" 37-year-old -[place] male that was brought to the emergency room for [place] things [place] by police. Today the patient is calm and cooperative during the assessment. He stated that he slept well and his mood is "much better." He stated that he plan to follow up with outpatient psy services when discharged. He denies any side effects of his medications. Mental Status Exam - Vital signs Last Vital Signs Temp 97.8 F 10/13/17 00:38 Pulse 59 L 10/13/17 06:38 Resp 18 10/13/17 06:38 BP 114/64 10/13/17 06:38 Pulse Ox 100 10/13/17 06:38 - Exam Narrative exam: MSE: Appearance: calm, cooperative Behavior: regular eye contact Speech: regular rate and tone Mood: "much better" Affect: congruent to mood Thought Process: logical Thought Content: denies SI/HI's and VH's Motor Activity: sitting up in bed Cognition: A/O x 3 Insight: appropriate Judgment: appropriate Assessment and Plan Impression: Hx of Schizaffective DO and PTSD. Unspecified Psychosis. Cannabis Use DO. Substance Use DO (cocaine/amphetamines). The patient is no threat to self or others. DDx: R/O Bipolar DO with psychotic features, R/O Substance Induced Psychosis Recommendation/Plan: Rescind 1013. Continue Zyprexa 5 mg PO for psychosis/mood and Remeron 15 mg PO HS for PTSD. Discussed possible metabolic side of Zyprexa with the patient. Discussed possible suicidality/medication induced maritza with the patient reference Remeron. Discussed the importance to abstain from recreational drug use with patient. The patient can follow up with [facility] for outpatient psy services.
[2017-10-13 13:10] VITALS: BP 141/83
--- NOTE | 2017-10-13 14:48 | Discharge Summary ---
Providers - Providers Date of Admission: 10/08/17 18:28 Date of discharge: 10/13/17 Attending physician: RUTHIE SHIN Primary care physician: MINAL CARRANZA Hospitalization Condition: Stable Disposition: DC-01 TO HOME OR SELFCARE Time spent for discharge: 32 min Core Measure Documentation - Palliative Care Palliative Care/ Comfort Measures: Not Applicable - Core Measures Any of the following diagnoses?: none Exam - Constitutional Vitals: Temp Pulse Resp BP Pulse Ox 98.4 F 70 16 141/83 100 10/13/17 12:50 10/13/17 12:50 10/13/17 12:50 10/13/17 12:50 10/13/17 12:50 Plan Activity: no restrictions Diet: regular Special Instructions: smoking cessation Additional Instructions: Advised to quit smoking. Advised to quit recreational drug use, cocaine, marijuana, amphetamine. Follow behavioral health within one week Follow up with: PRIMARY CARE, [Referring] - 3-5 Days Prescriptions: OLANzapine [ZyPREXA] 5 mg PO HS #14 tablet
== END 2017-10-13 16:39 | disposition home or self-care (01) | DRG 558 ==
LOC: ED 03:20 → 3A 18:28
PROVIDERS: ADMIT Internal Medicine; ATTEND Internal Medicine
DX: M62.82 Rhabdomyolysis (principal); F43.10 Post-traumatic stress disorder, unspecified; X58.XXXA Exposure to other specified factors, initial encounter; F25.9 Schizoaffective disorder, unspecified; F31.9 Bipolar disorder, unspecified; F15.10 Other stimulant abuse, uncomplicated; F14.10 Cocaine abuse, uncomplicated; F12.10 Cannabis abuse, uncomplicated; E86.0 Dehydration; Y93.89 Activity, other specified; Y92.89 Other specified places as the place of occurrence of the external cause; Y99.8 Other external cause status; Z71.51 Drug abuse counseling and surveillance of drug abuser
CPT/HCPCS: 36415; 70450; 71045; 71110; 80048; 80053; 80307; 80320; 81001; 82550; 85025; 96361; 96372; 96374; 99291; G0480; J1630; J1956; J7030; J7070